=== PATIENT | male | born 1960 | race Two or more races ===

== ENCOUNTER 2018-06-09 16:23 | Emergency (ER) | payer SELFPAY ==
[~2018-06-09] VITALS: Ht 167.6 cm; Wt 59.9 kg
[2018-06-09 16:35] VITALS: BP 161/98
== END 2018-06-09 20:18 | disposition home or self-care (01) ==
LOC: EDBD 16:23 → ER 16:23
DX: S63.501A Unspecified sprain of right wrist, initial encounter (principal); I10 Essential (primary) hypertension; V03.00XA Pedestrian on foot injured in collision with car, pick-up truck or van in nontraffic accident, initial encounter; Y93.89 Activity, other specified; Y99.8 Other external cause status; Y92.89 Other specified places as the place of occurrence of the external cause
CPT/HCPCS: 73110